=== PATIENT | female | born 1985 | race Two or more races ===

== ENCOUNTER 2020-04-03 07:16 | Outpatient (CLI) | payer OTHER ==
[~2020-04-03 07:16] MED LIST: POLY119PG PO; ULTRACET PO
== END 2020-04-03 07:34 | disposition home or self-care (01) ==
LOC: NUCLEAR 07:16
PROVIDERS: ATTEND Internal Medicine Gastroenterology
DX: K31.84 Gastroparesis (principal)
CPT/HCPCS: 78264; A9541